=== PATIENT | female | born 1940 | race Caucasian/White ===

== ENCOUNTER 2020-08-02 20:18 | Inpatient (IN) | payer MEDICARE, OTHER ==
[~2020-08-02] VITALS: Ht 154.9 cm; Wt 63.0 kg
--- NOTE | 2020-08-02 20:25 | NUR ---
Patient BIB ambulance, here for SI, on 5150 hold. Plan to overdose on meds.
--- NOTE | 2020-08-02 20:30 | NUR ---
Requested sitter for the patient from Aida TURNERsupervisor cleaning and annealing, no sitter is available
[2020-08-02] MEDS ORDERED: ATOR40TA PO (20:33)
[2020-08-02] MEDS ORDERED: ALEN70TA80 PO (20:33)
[2020-08-02] MEDS ORDERED: DONE10TA44 PO (20:34)
[2020-08-02] MEDS ORDERED: DULO30CA2 PO (20:34)
[2020-08-02] MEDS ORDERED: APIX2.5T PO (20:34)
[2020-08-02] MEDS ORDERED: MEMA10TA PO (20:35)
[2020-08-02] MEDS ORDERED: MULT-594 PO (20:36)
[2020-08-02] MEDS ORDERED: LISI40TA13 PO (20:36)
[2020-08-02] MEDS ORDERED: NIFE-34 PO (20:39)
[2020-08-02] MEDS ORDERED: MONT10TA22 PO (20:39)
[2020-08-02] MEDS ORDERED: OMEP20CA15 PO (20:40)
[2020-08-02] MEDS ORDERED: TRAZ-182 PO (20:40)
[2020-08-02] MEDS ORDERED: BUPR100T6 PO (20:41)
[2020-08-02] MEDS ORDERED: DONE10TA11 PO (20:42)
[2020-08-02] MEDS ORDERED: ESCI20TA PO (20:43)
--- NOTE | 2020-08-02 21:25 | NUR ---
Telephone call from lab/Julius, reported result of negative COVID.
--- NOTE | 2020-08-02 22:18 | NUR ---
Dr. Helton on bedside. Report given to MHU YUE Bee, Dx Psychosis, room #137A. All belongings sent with patient.
--- NOTE | 2020-08-02 22:18 | NUR ---
Received admission report from Er nurse YUE Bhat
--- NOTE | 2020-08-02 22:35 | NUR ---
Arrived to the the unit via wheelchair accompanied by ER nurse. Awake, alert and oriented x 3, quite talkative, cooperative. Routine admission care done. Plan of care initiated. Shower given with minimal assist. Quite unsteady on her feet claiming that she haven't had a sleep x 18 hours and she's hungry, tired and sleepy. Refused to sign some documents at this time. Refused snack offered, preferred ice water, swallows good. Assisted back to bed with hand held assist. Denies any pain/discomforts at thsi time. Safety measures and fall prevention maintained.
--- NOTE | 2020-08-02 22:36 | NUR ---
Pt. admitted to MHU, Room 137A, under care of Dr. Juan. Belongs List completed
[2020-08-03] MEDS ORDERED: MAGNESIUM HYDROXIDE 30 ML LIQUID UDC PO PRN
[2020-08-03] MEDS ORDERED: BLOOD SUGAR DIAGNOSTIC 1 EACH STRIP VI ONE
--- NOTE | 2020-08-03 06:22 | NUR ---
Shift End Report: Slept total of 4.15 hours and patient expressed good feeling and relaxed. VS stable. No complaint of pain/discomforts. Still denying suicidal ideation. Slow and unsteady gait noted when ambulated to the bathroom. Will continue to monitor.
[2020-08-03 07:30] VITALS: BP 115/91
--- NOTE | 2020-08-03 08:54 | NUR ---
Firearms Report: Regional Administrative Assistant completed and submitted a DOJ firearms report for 5150 grave disability certification. A copy of report has been placed in patient chart.
[2020-08-03] MEDS ORDERED: MEMANTINE HCL 10 MG TABLET PO SCH (09:00)
[2020-08-03] MEDS ORDERED: DONEPEZIL 10 MG TABLET PO SCH ×2 (09:00→18:00)
[2020-08-03] MEDS ORDERED: buPROPion SR 100 MG TABLET.SA PO SCH (09:00)
--- NOTE | 2020-08-03 09:32 | NUR ---
Initial Discharge Plan: Patient currently resides alone at [address] [place] [address]; ([phone]). Patient will need a nursing facility upon discharge. This SW attempted to contact [facility] ([phone]) but was unavailable at this time. SW will work with the MD, treatment team, and family to help coordinate proper discharge plan.
--- NOTE | 2020-08-03 09:32 | NUR ---
SW Family Contact: This SW attempted to contact [facility] ([phone]) to gather collateral and discuss treatment/discharge plan, but was unavailable at this time.
[2020-08-03] MEDS: MULTIVITAMINS,THERAPEUTIC TABLET PO SCH (09:41)
[2020-08-03] MEDS: LISINOPRIL 20 MG TABLET PO SCH (09:42)
[2020-08-03] MEDS: LORAZEPAM 0.5 MG TABLET PO PRN (09:42)
--- NOTE | 2020-08-03 10:14 | NUR ---
SW Family Contact: This SW received the call back from ([phone]) [facility] and stated that this number is the wrong number. SW unable to locate family member numbers at this time.
[2020-08-03] MEDS: PANTOPRAZOLE SODIUM 40 MG TABLET.DR PO SCH (10:24)
[2020-08-03] MEDS: APIXABAN 2.5 MG TABLET PO SCH ×2 (10:30→17:10)
[2020-08-03] MEDS: NIFEdipine XL 60 MG TABSR PO SCH (10:37)
--- NOTE | 2020-08-03 14:15 | NUR ---
SW Family Contact: This SW received a phone call from patient's daughter Silvia Thomas ([phone]) who stated that she is involved in patient's care. Silvia would want patient to go to a nursing facility upon discharge. She expressed that patient is unable to take care of herself at home.
--- NOTE | 2020-08-03 14:29 | NUR ---
Individual Therapy: wire worker met with patient for brief counseling and assessed for level of suicidality. wire worker assessed for suicidal thoughts, patient denied suicidal thoughts. Patient expressed that she "used to feel sad". 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 She shared she took care of her at a young age. Patient stated "I just feel tired, but hopefully I get better". This SW actively listened to patient.
[2020-08-03 16:00] VITALS: BP 138/78
[2020-08-03] MEDS: DULOXETINE 30 MG CAPSULE.DR PO SCH (17:09)
[2020-08-03] MEDS: MONTELUKAST SODIUM 10 MG TABLET PO SCH (17:10)
[2020-08-03] MEDS ORDERED: ATORVASTATIN 40 MG TABLET PO SCH (18:00)
--- NOTE | 2020-08-03 18:40 | NUR ---
RECEIVED PATIENT IN HER ROOM, HAVING ARGUEMENTS WITH HER ROOMMATE, HER ROOMMATE WAS MANIC AND HYPERVERBAL AT THAT TIME AND UNABLE TO REDIRECT, PATIENT WAS TRANSFERRED TO A DIFFERENT ROOM, AND AFTER TRANSFERRING PATIENT WAS THANKFUL AND TOLD THE SUPERVISOR SHED WORKERS THAT SHE WILL LIKE THE NEW ROOM BECAUSE ITS MORE QUIET, WAS MONITORED [id number] FOR SAFETY NO SIGN OF DISTRESS AT THIS TIME
[2020-08-03] MEDS: DONEPEZIL 5 MG TABLET PO SCH (20:09)
[2020-08-03] MEDS: MEMANTINE HCL 5 MG TABLET PO SCH (20:09)
[2020-08-03 20:34] VITALS: BP 114/66
--- NOTE | 2020-08-04 05:58 | NUR ---
GPS: Remain calm and cooperative with meds and care. Slept total of 8 hours and patient expressed good feeling and relaxed. VS stable. No c/o pain/discomforts at this time. Denying suicidal ideation. Slow and unsteady gait noted when ambulated to the bathroom. Resting in bed comfortably.Will continue to monitor.
[2020-08-04] MEDS: PANTOPRAZOLE SODIUM 40 MG TABLET.DR PO SCH (06:39)
[2020-08-04 07:30] VITALS: BP 135/100
[2020-08-04] MEDS: LISINOPRIL 20 MG TABLET PO SCH (09:30)
[2020-08-04] MEDS: NIFEdipine XL 60 MG TABSR PO SCH (09:36)
[2020-08-04] MEDS: APIXABAN 2.5 MG TABLET PO SCH ×2 (09:37→16:18)
[2020-08-04] MEDS: MULTIVITAMINS,THERAPEUTIC TABLET PO SCH (09:38)
[2020-08-04] MEDS: MEMANTINE HCL 5 MG TABLET PO SCH ×2 (09:40→20:04)
[2020-08-04] MEDS: DULOXETINE 30 MG CAPSULE.DR PO SCH (16:05)
[2020-08-04] MEDS: MONTELUKAST SODIUM 10 MG TABLET PO SCH (17:00)
[2020-08-04 17:20] VITALS: BP 163/71
--- NOTE | 2020-08-04 17:49 | NUR ---
PATIENT SEEN IN HER ROOM, ATE HER DINNER, PATIENT ASKING OF HOW LONG WILL SHE HAVE TO STAY HERE, THE CONVEYOR SYSTEM OPERATOR EXPLAINED TO THE PATIENT ABOUT THE DISCHARGE PLANNING , PATIENT SHOWS UNDERSTANDING AND WAS CALM AFTER , PATIENT COMPLIANT WITH MEDICATION, DENIES SI AND HI, NO SIGN OF ANY DISTRESS AT THIS TIME
[2020-08-04] MEDS: LORAZEPAM 0.5 MG TABLET PO PRN (18:05)
[2020-08-04 20:04] VITALS: BP 113/71
[2020-08-04] MEDS: DONEPEZIL 5 MG TABLET PO SCH (20:04)
[2020-08-04] MEDS: ATORVASTATIN 40 MG TABLET PO SCH (20:04)
[2020-08-05] MEDS: PANTOPRAZOLE SODIUM 40 MG TABLET.DR PO SCH (06:08)
--- NOTE | 2020-08-05 06:20 | NUR ---
Patient rested well in between care; compliant with meds; assisted to meet hygiene needs; safety maintained; slept for 6+ hours.
[2020-08-05 07:30] VITALS: BP 155/73
[2020-08-05] MEDS: MEMANTINE HCL 5 MG TABLET PO SCH ×2 (09:26→20:01)
[2020-08-05] MEDS: LISINOPRIL 20 MG TABLET PO SCH (09:26)
[2020-08-05] MEDS: MULTIVITAMINS,THERAPEUTIC TABLET PO SCH (09:27)
[2020-08-05] MEDS: NIFEdipine XL 60 MG TABSR PO SCH (09:27)
[2020-08-05] MEDS: LORAZEPAM 0.5 MG TABLET PO PRN ×2 (09:32→20:01)
[2020-08-05] MEDS: APIXABAN 2.5 MG TABLET PO SCH ×2 (09:35→16:11)
[2020-08-05 15:24] VITALS: BP 102/46
[2020-08-05] MEDS: MONTELUKAST SODIUM 10 MG TABLET PO SCH (16:09)
[2020-08-05] MEDS: DULOXETINE 30 MG CAPSULE.DR PO SCH (16:09)
[2020-08-05 20:00] VITALS: BP 138/73
[2020-08-05] MEDS: DONEPEZIL 5 MG TABLET PO SCH (20:01)
[2020-08-05] MEDS: ATORVASTATIN 40 MG TABLET PO SCH (20:01)
[2020-08-06] MEDS: PANTOPRAZOLE SODIUM 40 MG TABLET.DR PO SCH (05:54)
--- NOTE | 2020-08-06 06:25 | NUR ---
First contact with the patient last night, patient was somewhat confused and very anxious to the point of shaking. Supervisor Of Research provided reassurance and medication for anxiety . Patient verbalized fear of losing her memory and fear of this environment and the people in it. After some time, patient calmed down and was able to sleep 8.15 hours. Frequent rounds were made to ensure patient safety. Continuing with the plan of care.
[2020-08-06 07:30] VITALS: BP 144/61
[2020-08-06 08:00] VITALS: BP 144/61
[2020-08-06] MEDS: LISINOPRIL 20 MG TABLET PO SCH (09:14)
[2020-08-06] MEDS: NIFEdipine XL 60 MG TABSR PO SCH (09:14)
[2020-08-06] MEDS: MEMANTINE HCL 5 MG TABLET PO SCH ×2 (09:14→20:43)
[2020-08-06] MEDS: MULTIVITAMINS,THERAPEUTIC TABLET PO SCH (09:14)
[2020-08-06] MEDS: APIXABAN 2.5 MG TABLET PO SCH ×2 (09:15→16:47)
[2020-08-06] MEDS: LORAZEPAM 0.5 MG TABLET PO PRN ×2 (09:51→16:45)
[2020-08-06 16:00] VITALS: BP 107/41
[2020-08-06] MEDS: ACETAMINOPHEN 325 MG TABLET PO PRN (16:45)
[2020-08-06] MEDS: DULOXETINE 30 MG CAPSULE.DR PO SCH (16:45)
[2020-08-06] MEDS: MONTELUKAST SODIUM 10 MG TABLET PO SCH (16:47)
[2020-08-06 20:00] VITALS: BP 157/69
[2020-08-06] MEDS: DONEPEZIL 5 MG TABLET PO SCH (20:43)
[2020-08-06] MEDS: ATORVASTATIN 40 MG TABLET PO SCH (20:43)
[2020-08-06] MEDS: MAG HYDROX/AL HYDROX/SIMETH 30 ML LIQUID UDC PO PRN (22:36)
--- NOTE | 2020-08-07 01:00 | NUR ---
patient is calm now. prn effective for anxiety.
[2020-08-07] MEDS ORDERED: ALENDRONATE SODIUM 70 MG TABLET PO SCH (06:00)
--- NOTE | 2020-08-07 06:20 | NUR ---
Patient slept 6.00. Much less anxious then the previous night. Still forgetful but not ruminating on things as much. Patient up early for a shower and requires minimal assistance with ADLs. Event Services Manager is monitoring patient for safety closely d/t a weak gait. No distress or issues at this time.
[2020-08-07] MEDS: PANTOPRAZOLE SODIUM 40 MG TABLET.DR PO SCH (06:24)
[2020-08-07 07:30] VITALS: BP 132/57
--- NOTE | 2020-08-07 08:00 | NUR ---
received report from YUE Mora. All questions, comments, and concerns were addressed. Received patient resting quietly in her assigned bed. bed is in low and locked position. patient is arousable to name.
[2020-08-07] MEDS: NIFEdipine XL 60 MG TABSR PO SCH (09:30)
[2020-08-07] MEDS: LISINOPRIL 20 MG TABLET PO SCH (09:31)
[2020-08-07] MEDS: MULTIVITAMINS,THERAPEUTIC TABLET PO SCH (09:31)
[2020-08-07] MEDS: MEMANTINE HCL 5 MG TABLET PO SCH ×2 (09:31→20:16)
[2020-08-07] MEDS: APIXABAN 2.5 MG TABLET PO SCH ×2 (09:32→16:14)
--- NOTE | 2020-08-07 10:43 | NUR ---
patient is alert and oriented. patient is cooperative and redirectable, but is anxious, preoccupied with being discharged, and noted with racing thoughts. patient provided with education about coping mechanisms for anxiety and how to help control racing, repetitive thoughts. able to verbalize understanding. patient is adherent with medication, no adverse reaction noted. she is dressed appropriately in hospital gown. denies SI/HI, denies AH/VH. patient is able to tolerate food and fluids. she is able to ambulate independently and is motivated to perform self care and ADL's. patient encouraged to participate in the unit therapeutic milieu and groups. educated about impulse control.
--- NOTE | 2020-08-07 11:10 | NUR ---
This advertising copywriter spoke with patient's daughter, Silvia Thomas [phone], who stated that she does not feel comfortable with her mother being discharged home. daughter stated that she is afraid for her mother's safety if sent back home and that if sent back home she is worried that her mother might harm herself. Daughter stated that this patient has had 1 previous SA where she "took all her medication" in an attempt to OD. daughter stated that patient's "moods" have become "much, much worse" and that the patient is angry and "cusses people out" all the time. SW informed of this conversation.
--- NOTE | 2020-08-07 11:41 | NUR ---
SNF Referral: This SW faxed clinicals to Rufina perez ([phone]) to [facility] for placement option. This SW sent H & P notes, progress notes, and medication list.
--- NOTE | 2020-08-07 12:54 | NUR ---
Court Hearing: Patient's court hearing was today and it was upheld for GD.
--- NOTE | 2020-08-07 12:54 | NUR ---
SNF Contact: This SW received a phone call from Rufina admin ([phone]) who stated patient is accepted at [facility].
--- NOTE | 2020-08-07 14:40 | NUR ---
SW Family Contact: This SW spoke with patient's daughter Silvia ([phone]) and discussed nursing facility options. This SW expressed that she is accepted at [facility]. Silvia was agreeable with this plan and would want patient to go there upon discharge.
[2020-08-07 15:08] VITALS: BP 121/52
--- NOTE | 2020-08-07 15:38 | NUR ---
Individual Therapy: pick pack worker met with patient for brief counseling and assessed for level of suicidality. pick pack worker assessed for suicidal thoughts, patient denied suicidal thoughts. Patient expressed she was never SI and that prior to coming to the hospital "I only called my doctor because I had cramps in my legs, I don't know how I ended up here". This SW reminded patient how she was brought to the hospital. Patient appeared anxious. This SW helped patient calm down and helped patient express her emotions.
--- NOTE | 2020-08-07 15:39 | NUR ---
SW Note: This SW met with patient to discuss discharge planning. This SW stated that she is accepted at [facility] and patient agrees with this plan. Patient expressed she needs the help and wants the help.
[2020-08-07] MEDS: DULOXETINE 30 MG CAPSULE.DR PO SCH (16:12)
[2020-08-07] MEDS: MONTELUKAST SODIUM 10 MG TABLET PO SCH (17:03)
[2020-08-07] MEDS: ENSURE ENLIVE (VAN) 240 ML LIQUID PO SCH (17:53)
[2020-08-07] MEDS: DONEPEZIL 5 MG TABLET PO SCH (20:16)
[2020-08-07] MEDS: ATORVASTATIN 40 MG TABLET PO SCH (20:16)
[2020-08-07 20:28] VITALS: BP 145/63
[2020-08-07] MEDS: LORAZEPAM 0.5 MG TABLET PO PRN (23:54)
--- NOTE | 2020-08-08 00:02 | NUR ---
patient c/o anxiety. ativan 0.5 mg po given.
[2020-08-08] MEDS: PANTOPRAZOLE SODIUM 40 MG TABLET.DR PO SCH (06:18)
--- NOTE | 2020-08-08 06:28 | NUR ---
GPS: Remain calm and cooperative with meds and care. Slept total of 7.30 hours and patient expressed good feeling and relaxed. VS stable. No c/o pain/discomforts at this time. Denying suicidal ideation. Slow and unsteady gait noted when ambulated to the bathroom. Resting in bed comfortably.Will continue to monitor.
[2020-08-08 07:30] VITALS: BP 131/49
[2020-08-08] MEDS: MEMANTINE HCL 5 MG TABLET PO SCH ×2 (08:15→20:32)
[2020-08-08] MEDS: MULTIVITAMINS,THERAPEUTIC TABLET PO SCH (08:15)
[2020-08-08] MEDS: ENSURE ENLIVE (VAN) 240 ML LIQUID PO SCH ×2 (08:16→16:31)
[2020-08-08] MEDS: LISINOPRIL 20 MG TABLET PO SCH (08:16)
[2020-08-08] MEDS: NIFEdipine XL 60 MG TABSR PO SCH (08:17)
[2020-08-08] MEDS: APIXABAN 2.5 MG TABLET PO SCH ×2 (08:21→16:31)
--- NOTE | 2020-08-08 11:54 | NUR ---
SW Family Contact: This SW contacted patient's daughter Silvia Thomas ([phone]) and stated patient will be discharged 08/09 to [facility]. She was agreeable with this plan.
--- NOTE | 2020-08-08 15:19 | NUR ---
patient is compliant with medication, and care, no agitated behavior noted, patient denied suicidal thoughts, continue to monitor per unit protocol
[2020-08-08 16:00] VITALS: BP 105/58
[2020-08-08] MEDS: DULOXETINE 30 MG CAPSULE.DR PO SCH (16:22)
[2020-08-08] MEDS: MONTELUKAST SODIUM 10 MG TABLET PO SCH (17:45)
[2020-08-08] MEDS: MAG HYDROX/AL HYDROX/SIMETH 30 ML LIQUID UDC PO PRN (18:43)
[2020-08-08 20:25] VITALS: BP 117/63
[2020-08-08] MEDS: DONEPEZIL 5 MG TABLET PO SCH (20:32)
[2020-08-08] MEDS: ATORVASTATIN 40 MG TABLET PO SCH (20:32)
[2020-08-08] MEDS: ACETAMINOPHEN 325 MG TABLET PO PRN (23:54)
--- NOTE | 2020-08-08 23:59 | NUR ---
patient c/o headache. tylenol 650 mg po given per patient request.
[2020-08-09] MEDS: PANTOPRAZOLE SODIUM 40 MG TABLET.DR PO SCH (06:06)
[2020-08-09 07:30] VITALS: BP 114/46
--- NOTE | 2020-08-09 07:30 | NUR ---
received report from URIEL Cabello. All questions, comments and concerns were addressed. Patient is alert and oriented. she is arousable to name. respirations are even and unlabored, no signs of respiratory distress noted. patient resting quietly in her assigned bed. bed is in low and locked position.
--- NOTE | 2020-08-09 08:27 | NUR ---
SW Discharge Note: Patient will be discharged to [facility] [address] [place] [address] ([phone]) via ambulance at 2PM. Spoke with Dixie, Admin Coordinator ([phone]) at the facility who states they are ready to accept the patient today. Patient is aware and agreeable with discharge plans. Patients daughter Silvia ([phone]) is aware and agreeable. Patient is alert and oriented x3, is unable to plan for self-care at this time, however, is willing to accept care at [facility]. Patient denies any suicidal or homicidal ideation. Patient denies visual/auditory hallucination. Patient will follow-up at the facility with Dr. Juan (Psychiatrist) and Dr. Burden (Spool Sander). Patient presents with euthymic mood and congruent affect.
[2020-08-09 09:00] VITALS: BP 114/46
[2020-08-09] MEDS: NIFEdipine XL 60 MG TABSR PO SCH (09:00)
[2020-08-09] MEDS: LISINOPRIL 20 MG TABLET PO SCH (09:00)
[2020-08-09] MEDS: MEMANTINE HCL 5 MG TABLET PO SCH (09:15)
[2020-08-09] MEDS: MULTIVITAMINS,THERAPEUTIC TABLET PO SCH (09:15)
[2020-08-09] MEDS: ENSURE ENLIVE (VAN) 240 ML LIQUID PO SCH (09:16)
[2020-08-09] MEDS: APIXABAN 2.5 MG TABLET PO SCH (09:16)
--- NOTE | 2020-08-09 13:05 | NUR ---
patient is alert and oriented. she is cooperative and redirectable. patient is adherent with medication, no adverse reaction noted. patient denies SI/HI, denies AH/VH. patient uses FWW to ambulate due to unsteady gait. patient is motivated to perform self care and ADL's. encouraged to participate in the unit therapeutic milieu and group activities. patient is able to make her needs known to staff.
--- NOTE | 2020-08-09 14:45 | NUR ---
DISCHARGE NOTE: Patient discharged to [facility] at 1430 in stable condition. Patient being transported by nonemergency ambulance. Patient's belongings, valuables, and home medication inventoried with patient and returned. patient provided with discharge instructions, education about medication, and instructions about follow-up care with physician. patient is able to verbalize understanding. patient denies suicidal and homicidal ideation. patient is alert and oriented in reality. patient
== END 2020-08-09 14:30 | DRG 885 ==
LOC: ER 20:18 → GPS 22:21
PROVIDERS: ADMIT Psychiatry & Neurology Psychosomatic Medicine; ATTEND Family Medicine
DX: F33.3 Major depressive disorder, recurrent, severe with psychotic symptoms (principal); F23 Brief psychotic disorder; R45.851 Suicidal ideations; F02.81 Dementia in other diseases classified elsewhere, unspecified severity, with behavioral disturbance; J44.9 Chronic obstructive pulmonary disease, unspecified; E78.5 Hyperlipidemia, unspecified; F41.9 Anxiety disorder, unspecified; K21.9 Gastro-esophageal reflux disease without esophagitis; Z79.01 Long term (current) use of anticoagulants; Z87.891 Personal history of nicotine dependence; G30.9 Alzheimer's disease, unspecified; Z20.822 Contact with and (suspected) exposure to COVID-19; Z73.6 Limitation of activities due to disability; M62.81 Muscle weakness (generalized)
CPT/HCPCS: 36415; 71045; 93005; A4663; J8499

== ENCOUNTER 2021-01-20 13:01 | Inpatient (IN) | payer MEDICARE, OTHER ==
[~2021-01-20] VITALS: Ht 152.4 cm; Wt 56.7 kg
[~2021-01-20 13:01] MED LIST: ALEN70TA80 PO; APIX2.5T PO; ATOR40TA PO; LISI40TA13 PO; MONT10TA22 PO; MULT-594 PO; NIFE-34 PO; OMEP20CA15 PO
--- NOTE | 2021-01-20 13:08 | NUR ---
at bedside for assessment, patient brought in for medical clearance to psyche unit from [facility], patient able to ambulate to restroom and and ambulate back to bed, no behaviors noted at this time
[2021-01-20] MEDS ORDERED: DONE10TA44 PO (13:16)
[2021-01-20] MEDS ORDERED: MEMA10TA PO (13:16)
[2021-01-20] MEDS ORDERED: DULO30CA2 PO (13:16)
[2021-01-20] MEDS ORDERED: CALC1TAB30 PO (13:16)
[2021-01-20] MEDS ORDERED: TRAZ-182 PO (13:16)
[2021-01-20] MEDS ORDERED: HYDROCODONE/APAP 5-325MG TABLET PO ONE (13:30)
[2021-01-20] MEDS ORDERED: HYDROCODONE/APAP 5-325MG TABLET ONE (13:48)
--- NOTE | 2021-01-20 13:56 | NUR ---
patient taken to radiology for CT of the head
--- NOTE | 2021-01-20 15:49 | NUR ---
Report given to yuridia wilson [facility]
[2021-01-20 16:30] VITALS: BP 146/90
--- NOTE | 2021-01-20 16:30 | NUR ---
Received patient via wheelchair from ER. Patient is admitted to the unit with adm. dx of depression. Patient is on voluntary hold. Patient is alert and oriented x 4, able to follow simple commands, hard of hearing on both ears, body assessment done and no skin issues noted, patient is able to walk with assist via FWW. Belongings were checked. When questioning if patient has any thoughts of suicide, patient stated "YES", no detailed plan were stated. Charge nurse and nurse food service supervisor made aware. Patient is sensitive with loud noises and gets easily irritated and covered her ears. Assisted patient to her room per patient request. Kept her room as quiet as possible. Provide frequent visual observation for safety. Accucheck done and blood sugar is 86. Patient able to eat her dinner with no discomfort. When asked if something happens to her in an emergency situation , and if she wants to be revived, patient shook her head and said "NO". Charge Nurse made aware of patient's response. All needs attended promptly. Will continue to monitor.
--- NOTE | 2021-01-20 16:42 | NUR ---
Pt. admitted to MHU , under care of Dr. SWANN and Sj, patient wheeled via wheelchair Belongs List completed and all belongings sent, IV removed, mrsa swab sent to lab
[2021-01-20] MEDS ORDERED: MAGNESIUM HYDROXIDE 30 ML LIQUID UDC PO PRN (16:45)
[2021-01-20] MEDS ORDERED: TEMAZEPAM 7.5 MG CAPSULE PO PRN (16:45)
[2021-01-20] MEDS ORDERED: BLOOD SUGAR DIAGNOSTIC 1 EACH STRIP VI ONE (17:00)
[2021-01-20 20:00] VITALS: BP 168/61
[2021-01-20] MEDS: ATORVASTATIN 40 MG TABLET PO SCH (21:26)
[2021-01-21 06:33] LABS: HEMATOCRIT 36.8 % (31.2-41.9); MEAN CORPUSCULAR HEMOGLOBIN 25.1 uug (24.7-32.8); MEAN CORPUSCULAR VOLUME 78.2 fL (75.5-95.3); PLATELET COUNT (AUTO) 293 K/uL (179-408)
[2021-01-21 07:04] LABS: THYROID STIMULATING HORMONE 1.932 mIU/mL (0.358-3.740)
[2021-01-21 07:24] LABS: BILIRUBIN,TOTAL 0.4 mg/dL (0.2-1.0); CREATININE 0.7 mg/dL (0.6-1.3); MAGNESIUM 1.6 mg/dL (1.8-2.4); PHOSPHOROUS 2.9 mg/dL (2.5-4.9); POTASSIUM 4.2 mmol/L (3.5-5.1); TOTAL PROTEIN, SERUM 7.1 g/dL (6.4-8.2)
[2021-01-21 07:30] VITALS: BP 149/110
[2021-01-21] MEDS: MAG HYDROX/AL HYDROX/SIMETH 30 ML LIQUID UDC PO PRN (08:23)
[2021-01-21] MEDS: ACETAMINOPHEN 325 MG TABLET PO PRN (08:32)
[2021-01-21] MEDS: APIXABAN 2.5 MG TABLET PO SCH ×2 (09:18→20:43)
[2021-01-21] MEDS: CALCIUM CARB/VITAMIN D 500MG-200UNITS TABLET PO SCH ×2 (09:33→16:35)
[2021-01-21] MEDS: MULTIVITAMINS,THERAPEUTIC TABLET PO SCH (09:33)
[2021-01-21] MEDS: LISINOPRIL 20 MG TABLET PO SCH (09:36)
--- NOTE | 2021-01-21 10:00 | NUR ---
received to care, visibly upset, but pleasant upon approach. denied feeling suicidal, or wanting to hurt herself. she stated that she had a headache, and felt 'SICK TO MY STOMACH" PRN tylenol and mylanta were given. she was then encouraged to eat breakfast first, before taking her morning medications. after eating, she stated feeling better, and took her medications, eventually calming down. she did not want to attend the group activities, and eventually went to sleep.
[2021-01-21] MEDS ORDERED: MAGNESIUM OXIDE 400 MG TABLET PO ONE (12:00)
--- NOTE | 2021-01-21 13:32 | NUR ---
appears calmer, now. remains in bed. visited at bedside by recreation therapist. no distress noted.
[2021-01-21 14:19] LABS: *BILIRUBIN,URIN NEGATIVE (NEGATIVE); *CLARITY,URINE CLEAR (CLEAR); *COLOR,URINE LIGHT YELLOW (YELLOW); *KETONES,URINE NEGATIVE (NEGATIVE); *UROBILINOGEN,URINE 0.2 E.U./dl (NORMAL); LEUKOCYTE ESTERASE ,URINE TRACE (NEGATIVE); NITRITE, URINE NEGATIVE (NEGATIVE); UGLUCOSE NEGATIVE (NEGATIVE)
[2021-01-21 14:20] LABS: *BLOOD, URINE TRACE (NEGATIVE)
[2021-01-21 14:40] LABS: BACTERIA,URINE FEW /HPF (NONE SEEN); SQUAMOUS EPITHELIAL CELL,UR FEW /HPF (NONE SEEN); URINE AMORPHOUS URATE FEW /HPF
[2021-01-21] MEDS ORDERED: POLYVINYL ALCOHOL OPHT DROPS 15 ML BOTTLE EACHEYE PRN (15:00)
--- NOTE | 2021-01-21 15:30 | NUR ---
Patient had a shower today. DIRECTOR TRADE reported a redness under her breasts and abrasion on her right scalp and left ear. Patient denies of any pain. Kept the skin clean and dry. Notified Holley Bruce NP and ordered for Nystatin Cream under her breasts and Triple antibiotic on her right scalp and left ear.
[2021-01-21 16:00] VITALS: BP 146/62
[2021-01-21] MEDS ORDERED: NEOMY/BACITRAC/POLYMI OINT 28.35 GM TUBE TOP PRN (17:00)
[2021-01-21] MEDS: CEphaleXIN 500 MG CAPSULE PO SCH (17:38)
--- NOTE | 2021-01-21 18:30 | NUR ---
Explained to the patient her 14 day hold and ends in and patient verbalized understanding. Gave patient a copy of the hold.
[2021-01-21 20:00] VITALS: BP 156/54
[2021-01-21] MEDS: ATORVASTATIN 40 MG TABLET PO SCH (20:42)
[2021-01-21] MEDS: NYSTATIN CREAM 30 GM TUBE TOP SCH (20:56)
[2021-01-21] MEDS ORDERED: TRAZODONE 50 MG TABLET PO SCH (21:00)
--- NOTE | 2021-01-22 06:49 | NUR ---
GPS: Pt.slept 8 hrs.last night. Remains anxious,depressed but denies wanting to hurt self. Re-assured prn. Safety emphasized. Will continue to monitor.
[2021-01-22 07:45] VITALS: BP 126/59
--- NOTE | 2021-01-22 08:16 | NUR ---
FIREARMS REPORT: Logistics Coordinator completed and submitted a DOJ firearms report for 5150 grave disability certification. A copy of report has been placed in patient chart.
[2021-01-22] MEDS: CALCIUM CARB/VITAMIN D 500MG-200UNITS TABLET PO SCH ×2 (08:19→16:30)
[2021-01-22] MEDS: MULTIVITAMINS,THERAPEUTIC TABLET PO SCH (08:19)
[2021-01-22] MEDS: CEphaleXIN 500 MG CAPSULE PO SCH ×2 (08:19→16:30)
[2021-01-22] MEDS: LISINOPRIL 20 MG TABLET PO SCH (08:20)
[2021-01-22] MEDS: APIXABAN 2.5 MG TABLET PO SCH ×2 (08:22→20:27)
[2021-01-22] MEDS: NYSTATIN CREAM 30 GM TUBE TOP SCH ×2 (08:23→20:26)
--- NOTE | 2021-01-22 10:03 | NUR ---
CHARLES Initial Discharge Plan: Patient currently resides alone at [facility] [address]; ([phone]). Patient will need a nursing facility upon discharge. This Patient's daughter, Silvia Rey ([phone]) is involved in the patients care. CHARLES will work with the MD, treatment team, and family to help coordinate proper discharge plan.
--- NOTE | 2021-01-22 10:25 | NUR ---
Brief Substance Abuse Intervention: Patient was provided with a brief substance abuse intervention for medications overdose and referred to the following substance abuse programs: [facility] Substance Abuse Self-helpline ([phone]); [facility] [address] [place] [address] ([phone]); [facility] [address] [facility] [place] [address] ([phone]); [facility] ([phone]); [facility] ([phone]); [facility] ([phone]); [facility] ([phone]).
--- NOTE | 2021-01-22 10:25 | NUR ---
Firearms Report: Visual Associate completed and submitted a DOJ firearms report for 5150 danger to self certifications. A copy of report has been placed in patient chart.
--- NOTE | 2021-01-22 10:29 | NUR ---
SW Family Contact: This Patient's daughter, Silvia Rey ([phone]) is involved in the patients care. SW discussed treatment and discharge plan with Silvia. Silvia stated that she would like patient to go to a [facility] with Palliative care. Silvia stated she does not want patient to go to another SNF at this time. SW will coordinate placement and appropriate resources for the patient and family.
[2021-01-22] MEDS ORDERED: DULOXETINE 30 MG CAPSULE.DR PO SCH (13:00)
[2021-01-22] MEDS: ACETAMINOPHEN 325 MG TABLET PO PRN (13:49)
[2021-01-22 16:06] VITALS: BP 96/49
[2021-01-22] MEDS: LORAZEPAM 0.5 MG TABLET PO PRN (16:30)
--- NOTE | 2021-01-22 17:51 | NUR ---
patient is AAO x3, c/o abdominal upset refused breakfast, pleasant upon approach. compliant with medications and staff requests. assisted to all needs.
[2021-01-22 20:16] VITALS: BP 114/53
[2021-01-22] MEDS: TRAZODONE 50 MG TABLET PO SCH (20:25)
[2021-01-22] MEDS: ATORVASTATIN 40 MG TABLET PO SCH (20:25)
--- NOTE | 2021-01-23 06:49 | NUR ---
GPS: Pt.slept 7 hrs.last night. Less anxious and depressed. Re-assured prn. Safe environment provided. Will continue to monitor.
[2021-01-23 07:30] VITALS: BP 108/54
[2021-01-23] MEDS: CEphaleXIN 500 MG CAPSULE PO SCH ×2 (08:36→16:58)
[2021-01-23] MEDS: CALCIUM CARB/VITAMIN D 500MG-200UNITS TABLET PO SCH ×2 (08:36→16:58)
[2021-01-23] MEDS: MULTIVITAMINS,THERAPEUTIC TABLET PO SCH (08:37)
[2021-01-23] MEDS: LISINOPRIL 20 MG TABLET PO SCH (08:38)
[2021-01-23] MEDS: APIXABAN 2.5 MG TABLET PO SCH ×2 (08:39→20:30)
[2021-01-23] MEDS: NYSTATIN CREAM 30 GM TUBE TOP SCH ×2 (08:45→20:29)
--- NOTE | 2021-01-23 10:03 | NUR ---
Court Hearing: Patients court hearing for 5250 was today and it was upheld for GD and danger to self.
[2021-01-23] MEDS: DULOXETINE 30 MG CAPSULE.DR PO SCH ×2 (12:44→16:58)
[2021-01-23] MEDS: LORAZEPAM 0.5 MG TABLET PO PRN (12:45)
[2021-01-23 15:22] VITALS: BP 110/50
--- NOTE | 2021-01-23 15:22 | NUR ---
patient remains isolative withdraw no interaction with other peers, compliant with all AM medication, refused to attend group activity, denies any SI/HI.
[2021-01-23] MEDS: ATORVASTATIN 40 MG TABLET PO SCH (20:29)
[2021-01-23] MEDS: TRAZODONE 50 MG TABLET PO SCH (20:29)
[2021-01-23 20:46] VITALS: BP 136/58
[2021-01-24 07:30] VITALS: BP 113/52
[2021-01-24] MEDS: CALCIUM CARB/VITAMIN D 500MG-200UNITS TABLET PO SCH ×2 (08:34→16:55)
[2021-01-24] MEDS: NYSTATIN CREAM 30 GM TUBE TOP SCH ×2 (08:34→20:33)
[2021-01-24] MEDS: LISINOPRIL 20 MG TABLET PO SCH (08:35)
[2021-01-24] MEDS: MULTIVITAMINS,THERAPEUTIC TABLET PO SCH (08:35)
[2021-01-24] MEDS: CEphaleXIN 500 MG CAPSULE PO SCH ×2 (08:35→16:55)
[2021-01-24] MEDS: APIXABAN 2.5 MG TABLET PO SCH ×2 (08:36→20:37)
--- NOTE | 2021-01-24 09:00 | NUR ---
Received report from table games shift manager RN. Pt is stable, calm and cooperative in bed at this time. Pt is a/o x 3, ambulatory. pt is cooperative with medications. will continue to monitor.
[2021-01-24] MEDS: DULOXETINE 30 MG CAPSULE.DR PO SCH ×2 (12:25→16:56)
[2021-01-24] MEDS: GABAPENTIN 100 MG CAPSULE PO SCH ×2 (13:40→20:33)
--- NOTE | 2021-01-24 15:46 | NUR ---
SW Family Contact: SW spoke with patient's daughter, Silvia Rey ([phone]) regarding discharge planning. SW discussed that the psychiatrist is recommending patient to go back to [facility] upon discharge as she will need continued stabilization before considering board and care placement. Silvia is agreeable with this plan.
[2021-01-24 16:06] VITALS: BP 123/88
--- NOTE | 2021-01-24 20:30 | NUR ---
RECEIVED PATIENT IN HER ROOM IN BED. SHE IS NOTED A/O X 3 ABLE TO VERBALIZED FEELINGS. SHE APPEARS DEPRESSED. MOOD IS LOW, AFFECT IS BLUNTED. UPON INTERVIEW. PATIENT STATED, "I AM HERE BECAUSE A TOOK LOTS OF PILLS AND I WISH I JUST HAD DONE IT RIGHT BUT NOW I FEEL I AM GLAD I DIDN'T BECAUSE MY FAMILY IS UPSET". "I WAS JUST TIRED OF BEING SICK ALL THE TIME AND A WANTED TO ENDED IT, BUT NOW I WANT TO LIVE". PATIENT WAS ABLE TO VERBALLY CFS. SHE STATED, "I WON'T HURT MYSELF, I DON'T WANT TO , I AM SORRY". PATIENT WAS REASSURED AND REDIRECTED. SAFETY AND FALL PRECAUTION IN PLACE. V/S STABLE. SHE WAS GIVEN PO FLUIDS AND SNACKS. WILL CONTINUE TO MONITOR.
[2021-01-24] MEDS: ATORVASTATIN 40 MG TABLET PO SCH (20:32)
[2021-01-24] MEDS: TRAZODONE 50 MG TABLET PO SCH (20:32)
[2021-01-24] MEDS: ACETAMINOPHEN 325 MG TABLET PO PRN (20:33)
[2021-01-24 21:46] VITALS: BP 113/52
[2021-01-25 07:30] VITALS: BP 121/49
[2021-01-25] MEDS: GABAPENTIN 100 MG CAPSULE PO SCH ×2 (09:19→16:55)
[2021-01-25] MEDS: MULTIVITAMINS,THERAPEUTIC TABLET PO SCH (09:20)
[2021-01-25] MEDS: LISINOPRIL 20 MG TABLET PO SCH (09:20)
[2021-01-25] MEDS: CALCIUM CARB/VITAMIN D 500MG-200UNITS TABLET PO SCH ×2 (09:20→16:55)
[2021-01-25] MEDS: CEphaleXIN 500 MG CAPSULE PO SCH ×2 (09:20→16:55)
[2021-01-25] MEDS: APIXABAN 2.5 MG TABLET PO SCH ×2 (09:20→20:27)
[2021-01-25] MEDS: NYSTATIN CREAM 30 GM TUBE TOP SCH ×2 (09:34→20:21)
[2021-01-25] MEDS: DULOXETINE 30 MG CAPSULE.DR PO SCH ×2 (12:42→16:55)
--- NOTE | 2021-01-25 13:43 | NUR ---
GPS: pt alert and stays in her room most of the time. cooperative with care. no aggressive behavior at this shift. no SI noted. cooperative with care and takes medication.
[2021-01-25] MEDS: diphenhydrAMINE 25 MG CAP PO PRN (15:21)
[2021-01-25] MEDS: GLUCERNA SHAKE 237 ML CAN PO SCH (17:00)
[2021-01-25 17:04] VITALS: BP 134/68
[2021-01-25] MEDS: MAG HYDROX/AL HYDROX/SIMETH 30 ML LIQUID UDC PO PRN (19:50)
[2021-01-25 19:51] VITALS: BP 126/64
[2021-01-25] MEDS: ATORVASTATIN 40 MG TABLET PO SCH (20:20)
[2021-01-25] MEDS: TRAZODONE 50 MG TABLET PO SCH (20:20)
--- NOTE | 2021-01-25 21:43 | NUR ---
RECEIVED PATIENT IN HER ROOM IN BED. SHE IS NOTED AWAKE A/O X 3 ABLE TO VERBALIZED FEELINGS. PATIENT APPEARS DEPRESSED, SAD FACE, AND WITHDRAWN. UPON INTERVIEW, PATIENT DENIED SI OR ANY THOUGHT TO HARM SELF. SHE STATED, "I FEEL ASHAMED FOR WHAT I DID, I WAS NOT THINKING, NOW MY SON WILL NOT TAKE ME BACK. I WANT TO GO BACK HOME WITH MY SON, THERE IS NO BETTER PLACE LIKE HOME". PATIENT DENIED SI AND SHE IS ABLE TO VERBALLY CFS. PATIENT WAS REASSURED FOR HER SAFETY. SAFETY AND FALL PRECAUTIONS IN PLACE. V/S STABLE, NO S/S OF BLEEDING. SHE WAS GIVEN PO FLUIDS AND SNACKS. WILL CONTINUE TO MONITOR.
[2021-01-26 07:30] VITALS: BP 126/47
[2021-01-26] MEDS: GLUCERNA SHAKE 237 ML CAN PO SCH ×2 (09:00→17:27)
[2021-01-26] MEDS: NYSTATIN CREAM 30 GM TUBE TOP SCH ×2 (09:00→20:40)
[2021-01-26] MEDS: CEphaleXIN 500 MG CAPSULE PO SCH ×2 (09:56→17:24)
[2021-01-26] MEDS: APIXABAN 2.5 MG TABLET PO SCH ×2 (09:56→21:06)
[2021-01-26] MEDS: MULTIVITAMINS,THERAPEUTIC TABLET PO SCH (09:57)
[2021-01-26] MEDS: CALCIUM CARB/VITAMIN D 500MG-200UNITS TABLET PO SCH ×2 (09:57→17:24)
[2021-01-26] MEDS: LISINOPRIL 20 MG TABLET PO SCH (09:58)
--- NOTE | 2021-01-26 10:33 | NUR ---
GPS: pt on bed, likes to stay isolated. encouraged to attend group therapy. no signs of SI at this time.
[2021-01-26] MEDS: GABAPENTIN 100 MG CAPSULE PO SCH ×2 (12:23→17:24)
[2021-01-26] MEDS: DULOXETINE 30 MG CAPSULE.DR PO SCH ×2 (12:24→17:24)
[2021-01-26 16:33] VITALS: BP 105/48
[2021-01-26 20:07] VITALS: BP 101/51
[2021-01-26] MEDS: ATORVASTATIN 40 MG TABLET PO SCH (20:55)
[2021-01-26] MEDS: TRAZODONE 50 MG TABLET PO SCH (20:55)
[2021-01-26] MEDS: ACETAMINOPHEN 325 MG TABLET PO PRN (20:55)
[2021-01-27] MEDS: CALCIUM CARB/VITAMIN D 500MG-200UNITS TABLET PO SCH ×2 (08:27→16:36)
[2021-01-27] MEDS: GABAPENTIN 100 MG CAPSULE PO SCH ×3 (08:27→16:35)
[2021-01-27] MEDS: MULTIVITAMINS,THERAPEUTIC TABLET PO SCH (08:27)
[2021-01-27] MEDS: CEphaleXIN 500 MG CAPSULE PO SCH ×2 (08:27→16:35)
[2021-01-27] MEDS: LISINOPRIL 20 MG TABLET PO SCH (08:27)
[2021-01-27] MEDS: APIXABAN 2.5 MG TABLET PO SCH ×2 (08:28→20:06)
[2021-01-27] MEDS: GLUCERNA SHAKE 237 ML CAN PO SCH ×2 (08:32→16:36)
[2021-01-27 08:37] VITALS: BP 93/48
[2021-01-27] MEDS: NYSTATIN CREAM 30 GM TUBE TOP SCH ×2 (08:38→20:07)
[2021-01-27] MEDS: ACETAMINOPHEN 325 MG TABLET PO PRN ×2 (11:47→20:03)
[2021-01-27] MEDS: DULOXETINE 30 MG CAPSULE.DR PO SCH ×2 (12:53→16:35)
[2021-01-27 16:45] VITALS: BP 111/49
[2021-01-27 20:00] VITALS: BP 127/55
[2021-01-27] MEDS: TRAZODONE 50 MG TABLET PO SCH (20:04)
[2021-01-27] MEDS: ATORVASTATIN 40 MG TABLET PO SCH (20:07)
--- NOTE | 2021-01-28 05:22 | NUR ---
Received Pt in bed awake, A+Ox4 with fair insight into her situation. Pt admits to taking and overdose of medications in an attempted suicide, but now says she feels "ashamed and embarrassed over what I did to my family". Pt denies any current suicidal thoughts, plans, or intent and verbally contracts for safety. Pt appears depressed and is withdrawn and isolative, only out of her room for meds and meals. Pt encouraged to socialize with the milieu. Denies AH/VH. Reported and throbbing headache, Tylenol 650mg administered with good effect. VS stable.
[2021-01-28] MEDS: MULTIVITAMINS,THERAPEUTIC TABLET PO SCH (08:03)
[2021-01-28] MEDS: LISINOPRIL 20 MG TABLET PO SCH (08:03)
[2021-01-28] MEDS: GABAPENTIN 100 MG CAPSULE PO SCH ×3 (08:05→16:02)
[2021-01-28] MEDS: APIXABAN 2.5 MG TABLET PO SCH ×2 (08:05→20:03)
[2021-01-28] MEDS: GLUCERNA SHAKE 237 ML CAN PO SCH ×2 (08:06→17:05)
[2021-01-28] MEDS: NYSTATIN CREAM 30 GM TUBE TOP SCH ×2 (08:06→20:01)
[2021-01-28] MEDS: CALCIUM CARB/VITAMIN D 500MG-200UNITS TABLET PO SCH ×2 (08:09→16:02)
[2021-01-28 08:21] VITALS: BP 128/66
[2021-01-28] MEDS: DULOXETINE 30 MG CAPSULE.DR PO SCH ×2 (12:29→16:02)
[2021-01-28 15:15] VITALS: BP 92/51
[2021-01-28 19:54] VITALS: BP 106/52
[2021-01-28] MEDS: TRAZODONE 50 MG TABLET PO SCH (20:01)
[2021-01-28] MEDS: ATORVASTATIN 40 MG TABLET PO SCH (20:04)
[2021-01-28] MEDS: LORAZEPAM 0.5 MG TABLET PO PRN (20:11)
[2021-01-28] MEDS: diphenhydrAMINE 25 MG CAP PO PRN (20:11)
[2021-01-29 07:59] VITALS: BP 92/47
[2021-01-29] MEDS: NYSTATIN CREAM 30 GM TUBE TOP SCH ×2 (08:41→20:52)
[2021-01-29] MEDS: CALCIUM CARB/VITAMIN D 500MG-200UNITS TABLET PO SCH ×2 (08:41→17:16)
[2021-01-29] MEDS: MULTIVITAMINS,THERAPEUTIC TABLET PO SCH (08:42)
[2021-01-29] MEDS: LISINOPRIL 20 MG TABLET PO SCH (08:44)
[2021-01-29] MEDS: GABAPENTIN 100 MG CAPSULE PO SCH ×3 (08:46→17:16)
[2021-01-29] MEDS: APIXABAN 2.5 MG TABLET PO SCH ×2 (08:48→20:54)
[2021-01-29] MEDS: GLUCERNA SHAKE 237 ML CAN PO SCH ×2 (08:53→17:16)
--- NOTE | 2021-01-29 09:00 | NUR ---
Received report from night club manager RN. Pt is in bed resting. She is a/o x 4 calm and cooperative with medications and staff. Pt is currently stable. will continue to monitor.
[2021-01-29] MEDS: DULOXETINE 30 MG CAPSULE.DR PO SCH ×2 (12:49→17:15)
[2021-01-29 16:08] VITALS: BP 101/44
[2021-01-29 20:00] VITALS: BP 140/52
[2021-01-29] MEDS: TRAZODONE 50 MG TABLET PO SCH (20:52)
[2021-01-29] MEDS: ATORVASTATIN 40 MG TABLET PO SCH (20:52)
[2021-01-30 07:30] VITALS: BP 112/51
[2021-01-30] MEDS: GABAPENTIN 100 MG CAPSULE PO SCH ×3 (08:12→16:11)
[2021-01-30] MEDS: MULTIVITAMINS,THERAPEUTIC TABLET PO SCH (08:13)
[2021-01-30] MEDS: DULOXETINE 30 MG CAPSULE.DR PO SCH ×3 (08:13→16:11)
[2021-01-30] MEDS: CALCIUM CARB/VITAMIN D 500MG-200UNITS TABLET PO SCH ×2 (08:13→16:11)
[2021-01-30] MEDS: APIXABAN 2.5 MG TABLET PO SCH ×2 (08:14→20:36)
[2021-01-30] MEDS: NYSTATIN CREAM 30 GM TUBE TOP SCH ×2 (08:16→20:35)
[2021-01-30] MEDS: GLUCERNA SHAKE 237 ML CAN PO SCH ×2 (08:16→16:11)
[2021-01-30] MEDS: LISINOPRIL 20 MG TABLET PO SCH (08:22)
[2021-01-30 15:06] VITALS: BP 138/47
[2021-01-30] MEDS: ACETAMINOPHEN 325 MG TABLET PO PRN (16:28)
--- NOTE | 2021-01-30 18:16 | NUR ---
NSG: patient remains isolative. no interaction with other peers, compliant with all AM medication, refused to attend group activity, denies any SI/HI. continue plan of care.
[2021-01-30 20:00] VITALS: BP 121/55
[2021-01-30] MEDS: TRAZODONE 50 MG TABLET PO SCH (20:36)
[2021-01-30] MEDS: diphenhydrAMINE 25 MG CAP PO PRN (20:46)
[2021-01-30] MEDS: ATORVASTATIN 40 MG TABLET PO SCH (20:47)
--- NOTE | 2021-01-30 21:00 | NUR ---
Received patient in her room in bed. she is noted awake, A/O x 3, she is able to verbalized feelings. she continue withdrawn and isolative; however, she denied SI or any plan to hurt self. she wish she could go back home with her son. Patient is able to verbally CFS. she is reassured for her safety. she is given PO fluids and snacks. V/S stable. safty and fall precaution inh place. will continue to monitor.
--- NOTE | 2021-01-31 06:28 | NUR ---
PATIENT SLEPT FOR APPROX 7.0 HRS THROUGH THE NIGHT. SHE DENIED SI. ABLE TO VERBALLY CFS. WILL CONTINUE TO MONITOR.
[2021-01-31 07:30] VITALS: BP 118/48
--- NOTE | 2021-01-31 07:30 | NUR ---
Receive patient awake, alert/oriented. Able to take morning meds. V/S stable. safety and fall precaution in place. Denies SI. will continue to monitor.
[2021-01-31] MEDS: GABAPENTIN 100 MG CAPSULE PO SCH ×3 (07:52→16:26)
[2021-01-31] MEDS: DULOXETINE 30 MG CAPSULE.DR PO SCH ×3 (07:53→16:26)
[2021-01-31] MEDS: LISINOPRIL 20 MG TABLET PO SCH (07:53)
[2021-01-31] MEDS: CALCIUM CARB/VITAMIN D 500MG-200UNITS TABLET PO SCH ×2 (07:53→16:26)
[2021-01-31] MEDS: MULTIVITAMINS,THERAPEUTIC TABLET PO SCH (07:53)
[2021-01-31] MEDS: APIXABAN 2.5 MG TABLET PO SCH ×2 (07:55→20:35)
[2021-01-31] MEDS: NYSTATIN CREAM 30 GM TUBE TOP SCH ×2 (07:55→20:27)
[2021-01-31] MEDS: GLUCERNA SHAKE 237 ML CAN PO SCH ×2 (07:56→16:28)
--- NOTE | 2021-01-31 08:37 | NUR ---
CHARLES Discharge Note: Patient will be discharged to [facility] [address] [facility] [place] [address] ([phone]) via ambulance at 1PM. Spoke with Dixie, Admin Coordinator at the facility who states they are ready to accept the patient today. Patient is aware and agreeable with discharge plans. Patients daughter Silvia ([phone]) is aware and agreeable. Patient is alert and oriented x3, is unable to plan for self-care at this time, however, is willing to accept care at [facility]. Patient denies any suicidal or homicidal ideation. Patient will follow-up at the facility with Dr. Juan (psychiatrist) and Dr. Small (Quarry Worker). Patient presents with euthymic mood and congruent affect. Addendum: 01/31/21 at 0947 by OSMIN URRUTIA DISREGARD NOTE/ ENTERED IN ERROR!
[2021-01-31] MEDS: ACETAMINOPHEN 325 MG TABLET PO PRN ×2 (12:33→20:31)
[2021-01-31 16:00] VITALS: BP 119/48
[2021-01-31 17:17] VITALS: BP 119/48
--- NOTE | 2021-01-31 18:17 | NUR ---
Patient requested PRN pain medication x1 during the shift. Noted with hard of hearing. She preferred to stay in her room the whole duration of am shift.. Denies SI. No distress identified during the shift. Kept safe and frequent checks done. All due med given as ordered. Will endorse to the next shift for continuity of care.
[2021-01-31] MEDS: TRAZODONE 50 MG TABLET PO SCH (20:29)
[2021-01-31] MEDS: ATORVASTATIN 10 MG TABLET PO SCH (20:31)
[2021-01-31 20:41] VITALS: BP 198/53
--- NOTE | 2021-02-01 05:49 | NUR ---
Pt asleep at this time, no s/s of distress. Manifested relief of pain after interventions. No change in LOC, A/O. No episode of aggresion and agitation. Cooperative with care, compliant with meds. Safety precautions in place. Q15 min checks done to ensure safety.
[2021-02-01 07:18] LABS: HEMATOCRIT 33.3 % (31.2-41.9); MEAN CORPUSCULAR HEMOGLOBIN 24.9 uug (24.7-32.8); MEAN CORPUSCULAR VOLUME 77.8 fL (75.5-95.3); PLATELET COUNT (AUTO) 280 K/uL (179-408)
[2021-02-01 07:30] VITALS: BP 115/60
--- NOTE | 2021-02-01 07:30 | NUR ---
Patient is alert/oriented, denies pain, denies SI. Reoriented to the room, encouraged activity. Will continue to monitor.
[2021-02-01 07:33] LABS: BILIRUBIN,TOTAL 0.2 mg/dL (0.2-1.0); CREATININE 0.8 mg/dL (0.6-1.3); MAGNESIUM 1.7 mg/dL (1.8-2.4); PHOSPHOROUS 3.8 mg/dL (2.5-4.9); POTASSIUM 4.1 mmol/L (3.5-5.1); TOTAL PROTEIN, SERUM 6.5 g/dL (6.4-8.2)
[2021-02-01] MEDS: CALCIUM CARB/VITAMIN D 500MG-200UNITS TABLET PO SCH ×2 (08:00→16:36)
[2021-02-01] MEDS: NYSTATIN CREAM 30 GM TUBE TOP SCH ×2 (08:00→20:12)
[2021-02-01] MEDS: DULOXETINE 30 MG CAPSULE.DR PO SCH ×3 (08:00→16:36)
[2021-02-01] MEDS: GABAPENTIN 100 MG CAPSULE PO SCH ×3 (08:00→16:36)
[2021-02-01] MEDS: MULTIVITAMINS,THERAPEUTIC TABLET PO SCH (08:00)
[2021-02-01] MEDS: LISINOPRIL 5 MG TABLET PO SCH ×2 (08:01→20:07)
[2021-02-01] MEDS: APIXABAN 2.5 MG TABLET PO SCH ×2 (08:04→20:12)
[2021-02-01] MEDS: GLUCERNA SHAKE 237 ML CAN PO SCH ×2 (08:05→16:36)
[2021-02-01] MEDS ORDERED: MAGNESIUM OXIDE 400 MG TABLET PO ONE (10:00)
--- NOTE | 2021-02-01 13:25 | NUR ---
order COVID test. Lab informed.
[2021-02-01] MEDS: MAG HYDROX/AL HYDROX/SIMETH 30 ML LIQUID UDC PO PRN (14:08)
--- NOTE | 2021-02-01 14:24 | NUR ---
Obtained COVID swab, sent to the lab.
[2021-02-01 16:00] VITALS: BP 109/51
--- NOTE | 2021-02-01 18:04 | NUR ---
Denies pain during the shift. No acute changes identified. She remained in the room the whole. Frequent visual check done. Assisted with ADLs. All needs attended, and due meds given. Safety measures maintained. Will endorse to the next shift for continuity of care.
[2021-02-01 20:01] VITALS: BP 112/54
[2021-02-01] MEDS: ATORVASTATIN 10 MG TABLET PO SCH (20:06)
[2021-02-01] MEDS: TRAZODONE 50 MG TABLET PO SCH (20:06)
[2021-02-02 07:30] VITALS: BP 112/54
--- NOTE | 2021-02-02 08:05 | NUR ---
SW Discharge Note: Patient will be discharged to [facility] [id number] [place] [address] ([phone]) via ambulance at 1PM. Spoke with Dixie, Admin Coordinator at the facility who states they are ready to accept the patient today. Patient is aware and agreeable with discharge plans. Patients daughter Silvia ([phone]) is aware and agreeable. Patient is alert and oriented x3, is unable to plan for self-care at this time, however, is willing to accept care at [facility]. Patient denies any suicidal or homicidal ideation. Patient will follow-up at the facility with Dr. Juan (psychiatrist) and Dr. Small ([employer]). Patient presents with euthymic mood and congruent affect.
[2021-02-02] MEDS: CALCIUM CARB/VITAMIN D 500MG-200UNITS TABLET PO SCH (09:57)
[2021-02-02] MEDS: GABAPENTIN 100 MG CAPSULE PO SCH ×2 (09:57→13:45)
[2021-02-02] MEDS: DULOXETINE 30 MG CAPSULE.DR PO SCH ×2 (09:57→13:45)
[2021-02-02] MEDS: APIXABAN 2.5 MG TABLET PO SCH (10:01)
[2021-02-02] MEDS: GLUCERNA SHAKE 237 ML CAN PO SCH (10:02)
[2021-02-02] MEDS: NYSTATIN CREAM 30 GM TUBE TOP SCH (10:03)
[2021-02-02] MEDS: LISINOPRIL 5 MG TABLET PO SCH (10:03)
[2021-02-02] MEDS: MULTIVITAMINS,THERAPEUTIC TABLET PO SCH (10:04)
[2021-02-02 14:47] VITALS: BP 158/45
--- NOTE | 2021-02-02 15:08 | NUR ---
PT is being discharged to [facility] via ambulance. Pt is A/Ox3. No distress, vs are stable. Pt is willing to go. All belongings returned. Report was called and given to YUE Odell
== END 2021-02-02 16:00 | DRG 885 ==
LOC: ER 13:05 → GPS 15:27
PROVIDERS: ADMIT Psychiatry & Neurology Psychiatry; ATTEND Registered Nurse
DX: F33.2 Major depressive disorder, recurrent severe without psychotic features (principal); N39.0 Urinary tract infection, site not specified; R45.851 Suicidal ideations; G30.9 Alzheimer's disease, unspecified; F02.80 Dementia in other diseases classified elsewhere, unspecified severity, without behavioral disturbance, psychotic disturbance, mood disturbance, and anxiety; T45.5 Poisoning by, adverse effect of and underdosing of anticoagulants and antithrombotic drugs; E78.5 Hyperlipidemia, unspecified; I48.0 Paroxysmal atrial fibrillation; E83.42 Hypomagnesemia; F17.210 Nicotine dependence, cigarettes, uncomplicated; I11.9 Hypertensive heart disease without heart failure; F41.9 Anxiety disorder, unspecified; J44.9 Chronic obstructive pulmonary disease, unspecified; M19.90 Unspecified osteoarthritis, unspecified site; Z79.01 Long term (current) use of anticoagulants; Z91.5 Personal history of self-harm; R00.1 Bradycardia, unspecified; K21.9 Gastro-esophageal reflux disease without esophagitis; Z20.822 Contact with and (suspected) exposure to COVID-19; Z66 Do not resuscitate
CPT/HCPCS: 36415; 70030-TC; 70450; 71045; 83735; 84100; 84443; 85025; 93005; 97161; A4663; Q0163